=== PATIENT | female | born 1950 | race Caucasian/White ===

== ENCOUNTER → 2018-06-22 12:33 | Outpatient (CLI) | payer MEDICARE, OTHER, SELFPAY ==
--- NOTE | 2018-06-22 12:34 | DI.MG.S_ITS ---
BILATERAL DIGITAL SCREENING MAMMOGRAM 3D/2D WITH CAD: 06/22/2018 CLINICAL: Routine screening. Comparison is made to exams dated: 07/24/2015 mammogram, 07/23/2014 mammogram, and 08/16/2011 mammogram - [facility]. The tissue of both breasts is heterogeneously dense. This may lower the sensitivity of mammography. Current study was also evaluated with a Computer Aided Detection (CAD) system. No significant masses, calcifications, or other findings are seen in either breast. There has been no significant interval change. IMPRESSION: NEGATIVE There is no mammographic evidence of malignancy. A 1 year screening mammogram is recommended. This exam was interpreted at Station ID: [id number]. NOTE: For mammograms, a report in lay terms will be sent to the patient. Approximately 15% of breast malignancies will not be visualized mammographically. In the management of a palpable breast mass, a negative mammogram must not discourage biopsy of a clinically suspicious lesion. Electronically Signed By: Raman everett/alexy:06/22/2018 16:06:54 letter sent: Normal Exam ACR BI-RADS Category 1: Negative [id number]
== END ==
PROVIDERS: Family Provider Family Medicine; PCP Family Medicine; Visit Provider Family Medicine
DX: Z12.31 Encounter for screening mammogram for malignant neoplasm of breast (principal)
CPT/HCPCS: 77063; 77067

== ENCOUNTER 2019-09-13 11:28 | Day surgery (SDC) | payer MEDICARE, OTHER, SELFPAY ==
[2019-08-15 08:26] VITALS: BMI 25.0
[2019-09-13 12:22] VITALS: BP 135/94; PULSE 86; RESP 15; TEMP 37.1; O2SAT 96; BMI 25.0
[2019-09-13] MEDS: LACTATED RINGERS 1,000 ML 42 ML IV (12:28)
--- NOTE | 2019-09-13 13:07 | PM.HP.1 ---
History of Present Illness History of Present Illness Chief complaint: 20340 Patient History Medical History Anemia (Resolved 1972) Colitis (Resolved 1972) Colon polyps (Resolved 1972) Crohn's disease (Chronic) History of vaginal delivery (Resolved) Ileostomy present (Chronic 1985) Myocardial infarction (Resolved) Osteopenia (Chronic) Ulcerative colitis (Resolved 1972) Surgical History (Updated 08/15/19 @ 08:34 by Feli Funes RN) Anesthesia (Resolved) History of colectomy (Resolved 03/13/86) Hx of bilateral cataract extraction (Acute ~2017) Hx of foot surgery (Acute) Family & Social History Family History (Updated 06/06/18 @ 15:28 by Zahida Marsh MD) Sister Diabetes mellitus Grandmother Congestive heart failure Mother Cancer Social History: household members spouse lives independently Yes caregiver/support person No Tobacco & Substance use: Smoking Status Never smoker alcohol intake current Meds Home Medications and Allergies Home Medications Medication Instructions Recorded Confirmed Type acetaminophen 650 mg 1,300 mg PO Q8H PRN 06/06/18 09/13/19 History tablet,extended release diphenhydramine HCl 50 mg capsule 50 mg PO BEDTIME PRN 06/06/18 09/13/19 History nystatin 100,000 unit/gram topical 1 applictn TOP BID PRN #15 gram 04/05/19 09/13/19 Rx powder Allergies Allergy/AdvReac Type Severity Reaction Status Date / Time No Known Allergies Allergy Mild Uncoded 09/13/19 12:18 Exam Vital Signs (past 8 hours): - 09/13/19 12:22 Temperature 98.7 F Pulse Rate 86 Respiratory Rate 15 Blood Pressure 135/94 H Pulse Oximetry 96 Oxygen Delivery Method Room Air Assessment & Plan Assessment & Plan narrative: No internal changes to H&P
[2019-09-13] MEDS: CEFAZOLIN 2 GM/100 ML FROZ.PIGGY IV (13:15)
--- NOTE | 2019-09-13 13:46 | SUR.OPER ---
Supine on padded OR bed, head on pillow, arms secured on padded arm boards at <90 degrees abduction, legs uncrossed, safety belt at thigh, left leg under control of surgeon, tape over blanket over right lower leg.
[2019-09-13] MEDS: BUPIVACAINE 0.5% (PF) VIAL 10 ML INJ (13:53)
[2019-09-13] MEDS: LIDOCAINE 2% INJ MDV 20 ML INJ (13:54)
[2019-09-13] MEDS: LIDOCAINE 1% W/EPI 20 ML INJ (13:55)
[2019-09-13] MEDS: DEXAMETHASONE 10 MG/ML VIAL 5 MG INJ (14:47)
[2019-09-13 15:02] VITALS: BP 140/84; PULSE 90; RESP 16; TEMP 36.4; O2SAT 98
[2019-09-13 15:05] VITALS: BP 140/87; PULSE 87; RESP 15; O2SAT 98
--- NOTE | 2019-09-13 15:05 | P.OP_ITS ---
Operative Date/Time/Diagnoses Date of procedure: 09/13/19 Time of procedure: 15:05 Pre-op diagnosis: Painful bunion deformity, left foot Post-op diagnosis: same Procedure & Clinicians Procedure: Bunion correction by double osteotomy, left foot Same procedure as scheduled: Yes Indications: painful bunion deformity, left foot Surgeon: Ata Billy Click Yes if Unassisted: Yes Anesthesia Type: General and Local Operative Notes Closure Type: primary Specimen(s): none sent Prosthetic devices, grafts, tissues, transplants, or devices: 1x2.0mm cortical screw 1x2.7mm cortical screw 1x#10 [id number] JAWS bone staple Estimated Blood Loss (mL): 5 Blood products transfused: none Tourniquet time (min): 0 Procedure in detail: Operation: The patient was taken from the day surgery area back to the operating room via gurney, after having been given IV antibiotic prophylaxis. She was placed on the OR table in the supine position. General anesthesia was induced by Dr. Nguyen. Local anesthetic infiltration using 50 50 lidocaine 12 cc was administered as a field block. A high calf tourniquet was placed, however was not utilized throughout the case. The foot was then prepped and draped in usual sterile fashion from toe to knee. Procedure: Bunionectomy by double osteotomy, left foot Attention was directed toward the dorsal medial side of the left foot. Just midline from the EHL tendon, a longitudinal incision measuring approximately 10 cm was placed over the distal 1st metatarsal extending just short of the hallux IP joint. Sharp and blunt dissection were utilized throughout the subcutaneous tissue layer, taking care to retract all vital structures and cauterized as necessary for adequate hemostasis. A dorsal longitudinal capsulotomy was performed delivering the 1st metatarsal head. Utilizing a K-wire as an axis guide, a long dorsal arm metaphyseal osteotomy was performed through the metatarsal neck. The capital fragment was then translated laterally about 5 mm and temporarily pinned in place. It was then permanently fixated with a 2.7 mm cortical screw distally and a 2.0 cortical screw more proximal. Good compression was found on tightening down of the screws. Additional correction was still deemed necessary and so a phalanx osteotomy was performed of the proximal phalanx. This was a transverse wedge osteotomy maintaining the lateral cortical hinge and avoiding a injury to any of the plantar structures. The osteotomy was closed down and fixated with a paragon 28 size 10. Compression staple. Excellent compression and alignment was achieved. The wound was then copiously irrigated with antibiotic solution, as had been done multiple times throughout the case. Layered closure was then performed of the capsule, subcu, and skin respectively with 3 0, 4, 5 O Vicryl. Steri-Strips were placed, a postop block of 0.5% Marcaine plain administered. A light gauze compression bandage was applied. Intraop C-arm was then utilized to confirm adequate in corrective fixation. The patient tolerated the procedures and anesthesia well without any apparent complications. She left the OR with vital signs stable and digital perfusion intact. She will be touchdown weight-bearing allowed in a walking boot and will be seen for follow-up in the [place] office next week. Complications: none Post-operative Condition: stable Disposition: same day surgery Plan for aftercare: Already has her boot. Already has po appointment made. Already given Rx for po pain meds.
[2019-09-13 15:10] VITALS: BP 141/87; PULSE 87; RESP 15; O2SAT 95
[2019-09-13 15:20] VITALS: BP 140/80; PULSE 83; RESP 13; TEMP 36.4; O2SAT 98
== END 2019-09-13 15:24 | disposition home or self-care (01) ==
PROVIDERS: PCP Family Medicine; Visit Provider Podiatrist
PROC: 0QBP0ZZ Excision of Left Metatarsal, Open Approach (ICD-10-PCS; CPT 28292; principal; 2019-09-13 13:00)
DX: M20.12 Hallux valgus (acquired), left foot (principal); M79.672 Pain in left foot; I25.2 Old myocardial infarction
CPT/HCPCS: 28299; J0690; J1100; J2704; J3010

== ENCOUNTER → 2023-07-06 09:57 | Outpatient (CLI) | payer MEDICARE, OTHER, SELFPAY ==
[2023-07-06 10:51] LABS: BUN Creatinine Ratio 16.9 (6-22); Blood Urea Nitrogen 11 mg/dL (7-17); Calcium 9.2 mg/dL (8.4-10.2); Carbon Dioxide 26 mmol/L (22-32); Chloride 103 mmol/L (98-107); Estimated Glomerular Filt Rate > 60 mL/min (>60); Glucose 109 mg/dL (80-110); HEMOLYSIS < 15 (0-50); Potassium 3.9 mmol/L (3.4-5.1); Sodium 136 mmol/L (137-145)
== END ==
PROVIDERS: PCP Family Medicine; Visit Provider Nurse Practitioner Family
DX: U07.1 COVID-19 (principal)
CPT/HCPCS: 80048

== ENCOUNTER → 2023-11-29 06:44 | Outpatient (CLI) | payer MEDICARE, OTHER, SELFPAY ==
[2023-11-29 08:40] LABS: Cholesterol 224 mg/dL (140-199); Glucose 92 mg/dL (80-110); HDL Cholesterol 91 mg/dL (40-60); LDL Cholesterol Calculated 112 mg/dL (<100); Triglycerides 106 mg/dL (35-150)
== END ==
LOC: LAB 06:46
PROVIDERS: PCP Family Medicine; Referring Provider Family Medicine; Visit Provider Family Medicine
DX: R73.9 Hyperglycemia, unspecified (principal); E78.5 Hyperlipidemia, unspecified
CPT/HCPCS: 36415; 80061; 82947

== ENCOUNTER → 2023-12-01 16:55 | Outpatient (CLI) | payer MEDICARE, OTHER, SELFPAY ==
--- NOTE | 2023-12-01 16:57 | DI.MG.S_ITS ---
BILATERAL DIGITAL SCREENING MAMMOGRAM 3D/2D WITH CAD: 12/01/2023 CLINICAL: Routine screening. Comparison is made to exams dated: 06/22/2018 mammogram, 07/24/2015 mammogram, and 07/23/2014 mammogram - [facility]. Both breasts are heterogeneously dense, which may obscure small masses (category c / 51-75% glandular tissue). Current study was also evaluated with a Computer Aided Detection (CAD) system. There is a focal asymmetry in the right breast at 12 o'clock middle depth. There is architectural distortion associated with the focal asymmetry. No other significant masses, calcifications, or other findings are seen in either breast. IMPRESSION: INCOMPLETE: NEEDS ADDITIONAL IMAGING EVALUATION The focal asymmetry in the right breast is indeterminate. Additional views with possible ultrasound are recommended. Based on the Tyrer Cuzick model (a risk assessment model) the patient's lifetime risk is 4.8% and her 10 year risk is 4.3%. According to the ACR, ACS, and NCCN guidelines, an annual breast MRI exam along with mammogram is recommended if the patient's lifetime risk is 20% or greater. This exam was interpreted at Station ID: [id number]. NOTE: For mammograms, a report in lay terms will be sent to the patient. Approximately 15% of breast malignancies will not be visualized mammographically. In the management of a palpable breast mass, a negative mammogram must not discourage biopsy of a clinically suspicious lesion. Electronically Signed By: Teresa Cevallos M.D. lk/:12/04/2023 10:37:46 letter sent: Additional Imaging Needed ACR BI-RADS Category 0: Incomplete 3340F
== END ==
PROVIDERS: PCP Family Medicine; Referring Provider Family Medicine; Visit Provider Family Medicine
DX: Z12.31 Encounter for screening mammogram for malignant neoplasm of breast (principal); R92.333 Mammographic heterogeneous density, bilateral breasts
CPT/HCPCS: 77063; 77067

== ENCOUNTER → 2024-01-05 09:18 | Outpatient (CLI) | payer MEDICARE, OTHER, SELFPAY ==
--- NOTE | 2024-01-05 | DI.MG.S_ITS ---
UNILATERAL RIGHT DIGITAL DIAGNOSTIC MAMMOGRAM 3D/2D WITH ADDITIONAL VIEWS: 01/05/2024 CLINICAL: Additional evaluation requested from prior study. Comparison is made to exams dated: 12/01/2023 mammogram, 06/22/2018 mammogram, and 07/24/2015 mammogram - [facility]. The right breast is heterogeneously dense, which may obscure small masses (category c / 51-75% glandular tissue). There is a focal asymmetry in the right breast at 12 o'clock middle depth. This is seen in additional views. There is architectural distortion associated with the focal asymmetry. No other significant masses or calcifications are seen in the breast. IMPRESSION: INCOMPLETE: NEEDS ADDITIONAL IMAGING EVALUATION The focal asymmetry in the right breast is indeterminate. A targeted ultrasound of the right breast is recommended and will be performed immediately following this exam. Based on the Tyrer Cuzick model (a risk assessment model) the patient's lifetime risk is 4.8% and her 10 year risk is 4.3%. According to the ACR, ACS, and NCCN guidelines, an annual breast MRI exam along with mammogram is recommended if the patient's lifetime risk is 20% or greater. This exam was interpreted at Station ID: [id number]. NOTE: For mammograms, a report in lay terms will be sent to the patient. Approximately 15% of breast malignancies will not be visualized mammographically. In the management of a palpable breast mass, a negative mammogram must not discourage biopsy of a clinically suspicious lesion. Electronically Signed By: Teresa Cevallos M.D. lk/:01/05/2024 10:05:44 ACR BI-RADS Category 0: Incomplete 3340F
--- NOTE | 2024-01-05 09:20 | DI.US.S_ITS ---
LIMITED ULTRASOUND OF RIGHT BREAST AND AXILLA: 01/05/2024 CLINICAL: Patient returns today to evaluate a focal asymmetry in the right breast. Comparison is made to exams dated: 01/05/2024 mammogram, 12/01/2023 mammogram, 06/22/2018 mammogram, 07/24/2015 mammogram, 07/23/2014 mammogram, and 08/16/2011 mammogram - [facility]. Color flow and real-time ultrasound of the right breast 10-11 o'clock, and axilla regions were performed on the areas of interest. Parra scale images of the real-time examination were reviewed. There is an irregular mass in the right breast at 10 o'clock middle depth. This irregular mass is hypoechoic with posterior acoustic shadowing. This correlates with mammography findings. There also is an enlarged lymph node in the right axillary tail. IMPRESSION: HIGHLY SUGGESTIVE OF MALIGNANCY The irregular mass in the right breast at 10 o'clock middle depth is highly suggestive of malignancy. An ultrasound guided biopsy is recommended. The enlarged lymph node in the right axillary tail is at a moderate suspicion for malignancy. An ultrasound guided biopsy is recommended. This exam was interpreted at Station ID: [id number]. SUMMARY: This was discussed with the patient by the radiologist at the time of the exam. Electronically Signed By: Teresa ugalde/:01/05/2024 10:54:01 letter sent: Biopsy Required Ultrasound BI-RADS: 5 Highly suggestive of malignancy
== END ==
LOC: MAMMO 09:19
PROVIDERS: PCP Family Medicine; Referring Provider Family Medicine; Visit Provider Family Medicine
DX: R92.8 Other abnormal and inconclusive findings on diagnostic imaging of breast (principal); N63.11 Unspecified lump in the right breast, upper outer quadrant; R59.0 Localized enlarged lymph nodes; R92.331 Mammographic heterogeneous density, right breast
CPT/HCPCS: 76642; 77065; G0279

== ENCOUNTER → 2024-01-22 08:01 | Outpatient (CLI) | payer MEDICARE, OTHER, SELFPAY ==
--- NOTE | 2024-01-22 | PATH_ITS ---
[facility] Accession Number: [id number] No. of containers..01 Tissue . 01 Material submitted: . breast - RIGHT BREAST 10:00 6 CMFN MASS . 01 Diagnosis: RIGHT BREAST 10 O'CLOCK, 6 CM FROM NIPPLE MASS, IMAGE-GUIDED BIOPSY: Invasive carcinoma of the breast. Please see case summary below. . CASE SUMMARY: . Specimen: Needle biopsy. Laterality: Right. . Tumor Tumor site: Upper outer quadrant. Specimen clock: 10 o'clock. Histologic type: Invasive carcinoma of no special type (ductal). . Histologic grade Glandular/tubular differentiation: Score 3/3. Nuclear pleomorphism: Score 3/3. Mitotic rate: Score 2/3. Overall grade: Grade 3. . Ductal carcinoma in situ: Not identified. Lymphatic invasion: Suspicious foci present. Microcalcifications: Not identified. . Special studies: . Predictive marker immunohistochemical studies are performed on block A1 with the invasive carcinoma showing the following results: . Estrogen receptor (SP1): Positive (91-100%, strong staining). . Progesterone receptor (1E2): Negative (less than 1%). Internal control cells present and stain as expected. Please see comment. . Her2 (4B5): Equivocal (Score 2+). Her2 FISH studies requested; results will be reported as an addendum. . . Internal controls for ER and OR are positive. Cold ischemic time is not known. The scoring criteria for breast biomarkers by immunohistochemistry is based on the ASCO/CAP guidelines (Panchito AC et al, J Clin Oncol: 2018 May 10;36(20):2065-5135 and Padmini ME et al, Arch Pathol Lab Med: 2009;134(6):907-22). Deparaffinized sections of formalin fixed tissue (along with appropriate positive controls) are incubated with the above antibody(s). Using the automated [place] stainer, tissue is incubated with the designated antibody which is then localized by a non-biotin, dual polymer detection system. The external controls are reviewed for appropriate reactivity and found to be adequate. Results on the target cell population are indicated above. These tests have not been validated on decalcified tissue. This test was developed and its performance characteristics determined by [employer]. It has not been cleared or approved by the U.S. Food and Drug Administration. The FDA has determined that such clearance or approval is not necessary. This test is used for clinical purposes. It should not be regarded as investigational or for research. MRV 01/25/2024 1341 Local . 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 . As part of ongoing quality technician, this case is also reviewed by Dr. Tania Shipley, who concurs with the given interpretation. . Dr. Jasmyn Espinoza discussed results with Dr. Maximo Patel's nurse, on 01-25-24 at approximately 1:16 p.m. . 01 Electronically signed: . Jasmyn Espinoza MD, Pathologist NPI- [id number] . 01 Gross description: . Received is one formalin-filled container labeled with the patient's name, designated right breast 10 o'clock 6 cm FN mass. Received with a plastic filter in the container, sample loose in container, and consists of multiple yellow-cook to cook-kumar pieces of tissue which range in size from 0.4 x 0.2 x 0.2 cm to 1.0 x 0.3 x 0.3 cm. All fragments are totally submitted in cassette A1. Possible collection date and time per requisition 01/22/2024 at 0918 hours, total fixation time approximately 18 hours. ([id number]) /MARIANA 01/23/2024 0650 Local . 01 Microscopic: . An immunohistochemistry panel is performed to further evaluate the cells of interest. The control stains show appropriate reactivity. . RESULTS: E-cadherin: Strongly positive. GATA3: Strongly positive. Myosin: Absent in regions of interest. P63: Absent in regions of interest. . The neoplastic cells are strongly positive for e-cadherin and NORBERTO-3, consistent with a ductal carcinoma of breast origin. The absence of myosin and p63 expression supports an invasive process. . * This test was developed and its performance characteristics determined by [employer]. It has not been cleared or approved by the U.S. Food and Drug Administration. The FDA has determined that such clearance or approval is not necessary. This test is used for clinical purposes. It should not be regarded as investigational or for research. . 01 Pathologist provided ICD-10: C77.3, N63.10, C50.911 . 01 CPT . 213035, T75975, E99174, 281812, 279131, 240804 Specimen Comment: A courtesy copy of this report has been sent to [phone] Performed at: 01 [facility] [address] [place] [address], [place], [place] [id number] MD Raman Daniel MD Phone: [phone]
--- NOTE | 2024-01-22 | DI.MG.S_ITS ---
UNILATERAL RIGHT DIGITAL DIAGNOSTIC MAMMOGRAM 3D/2D POST-PROCEDURE IMAGING FOR MARKER PLACEMENT: 01/22/2024 CLINICAL: Post clip. Comparison is made to exams dated: 01/05/2024 ultrasound, 01/05/2024 mammogram, 12/01/2023 mammogram, 01/22/2024 ultrasound biopsy, 01/22/2024 ultrasound biopsy, and 06/22/2018 mammogram - [facility]. The right breast is heterogeneously dense, which may obscure small masses (category c / 51-75% glandular tissue). There is a marker clip in the appropriate position in the right breast at 10 o'clock middle depth. This marker clip placement is at the biopsy site. Axillary biopsy clip is not included in the field of view of this exam. IMPRESSION: POST PROCEDURE MAMMOGRAM FOR MARKER PLACEMENT There was a successful marker clip placement in the right breast middle depth. Axillary biopsy clip is not included in the field of view of this exam. Based on the Tyrer Cuzick model (a risk assessment model) the patient's lifetime risk is 4.8% and her 10 year risk is 4.3%. According to the ACR, ACS, and NCCN guidelines, an annual breast MRI exam along with mammogram is recommended if the patient's lifetime risk is 20% or greater. This exam was interpreted at Station ID: [id number]. NOTE: For mammograms, a report in lay terms will be sent to the patient. Approximately 15% of breast malignancies will not be visualized mammographically. In the management of a palpable breast mass, a negative mammogram must not discourage biopsy of a clinically suspicious lesion. Electronically Signed By: Luis Arita M.D. ar/:01/22/2024 12:08:48 ACR BI-RADS Category Post-procedure mammogram for marker placement
--- NOTE | 2024-01-22 | PATH_ITS ---
[facility] Accession Number: [id number] No. of containers..01 Tissue . 01 Material submitted: . lymph node - RIGHT AXILLARY LYMPH NODE . 01 Diagnosis: RIGHT AXILLARY LYMPH NODE, NEEDLE CORE BIOPSY: Metastatic poorly differentiated carcinoma, consistent with breast ductal origin. MRV 01/25/2024 1359 Local . 01 Comment: Please note that while this axillary lymph node biopsy is AK positive, the biopsy from the right breast mass (case [id number]) is AK negative. . As part of routine food quality technician, this case was also reviewed by Dr. Shipley, who agrees with the interpretation. . Dr. Jasmyn Espinoza discussed results with Dr. Maximo Patel's nurse, on 01-25-24 at approximately 1:16 p.m. . 01 Electronically signed: . Jasmyn Espinoza MD, Pathologist NPI- [id number] . 01 Gross description: . Received is one formalin-filled container labeled with the patient's name designated right axillary lymph node, are three light cook cylindrical shaped pieces of tissue which range in size from 0.3 x 0.1 x 0.1 cm to 0.6 x 0.1 x 0.1 cm. All fragments are totally submitted in cassette A1. (DC:[id number]) /MARIANA 01/23/2024 0652 Local . 01 Microscopic: . An immunohistochemistry panel is performed to further evaluate the cells of interest. The control stains show appropriate reactivity. . RESULTS: GRECIA: Positive. E-cadherin: Strongly positive. GATA3: Strongly positive. Myosin: Absent in regions of interest. P63: Absent in regions of interest. . The neoplastic cells are strongly positive for GRECIA, e-cadherin and GATA3, consistent with ductal carcinoma of breast origin. Absent expression of myosin and p63 are consistent with an invasive process. . . Predictive marker immunohistochemical studies are performed on block A1 with the metastatic ductal carcinoma showing the following results: . Estrogen receptor (SP1): Positive (91-100%, strong staining). . Progesterone receptor (1E2): Positive (40-50%, weak staining). Please see comment. . Her2 (4B5): Equivocal (Score 2+). Her2 FISH is requested, results will be reported as an addendum. . Cold ischemic time is not known. The scoring criteria for breast biomarkers by immunohistochemistry is based on the ASCO/CAP guidelines (Panchito AC et al, J Clin Oncol: 2017May 15;36(20):0103-3987 and Padmini ME et al, Arch Pathol Lab Med: 2009;134(6):907-22). Deparaffinized sections of formalin fixed tissue (along with appropriate positive controls) are incubated with the above antibody(s). Using the automated [employer] stainer, tissue is incubated with the designated antibody which is then localized by a non-biotin, dual polymer detection system. The external controls are reviewed for appropriate reactivity and found to be adequate. Results on the target cell population are indicated above. These tests have not been validated on decalcified tissue. This test was developed and its performance characteristics determined by [employer]. It has not been cleared or approved by the U.S. Food and Drug Administration. The FDA has determined that such clearance or approval is not necessary. This test is used for clinical purposes. It should not be regarded as investigational or for research. . 01 Pathologist provided ICD-10: C77.3 . 01 CPT . 420034, B63690, A02785, 012739, 011622, 482962 Specimen Comment: A courtesy copy of this report has been sent to [phone] Performed at: 01 [facility] [address] [place] [address] [address] [facility], [place], [place] [id number] MD Raman Daniel MD Phone: [phone]
--- NOTE | 2024-01-22 08:04 | DI.US.S_ITS ---
ULTRASOUND GUIDED BIOPSY RIGHT BREAST USING VACUUM DEVICE WITH MARKING DEVICE INSERTED AND POST DIGITAL MAMMOGRAPHIC IMAGIN01/22/2024 CLINICAL: Right breast mass. PATIENT CONSENT: Risks (minor bleeding, infection, vasovagal reaction and repeat procedure), benefits and alternatives were explained to the patient and written informed consent was obtained. Correlation is made to exams dated: 01/05/2024 ultrasound, 01/05/2024 mammogram, 12/01/2023 mammogram, and 06/22/2018 mammogram - [facility]. An ultrasound guided biopsy using real-time ultrasound was performed for the irregular shaped mass located in the right breast at 10 o'clock middle depth. This was described on the previous mammography and ultrasound reports. The skin was prepped in the usual manner. Local anesthetic was administered to the access site. A skin eladio was made in the breast. The abnormality was approached from the lateral aspect. A 14 gauge biopsy needle was placed adjacent to the abnormality under ultrasound guidance. Once the needle was documented to be in the correct location, four specimens were obtained using a vacuum assisted device. A clip was inserted into the biopsy cavity. A sterile dressing was applied to the access site. Post procedure digital mammographic imaging demonstrates the location device at the targeted area. The specimens were sent to the laboratory for pathological analysis. IMPRESSION: ULTRASOUND GUIDED BIOPSY MALIGNANT Ultrasound guided biopsy of the mass in the right breast at 10 o'clock middle depth was successful with no apparent post procedure complications. Pathology indicates malignant invasive ductal carcinoma (IDC). Pathology results are concordant with imaging findings. A surgical/oncologic consultation is recommended. This exam was interpreted at Station ID: [id number]. Luis Arita M.D. Vanessa Gutierrez M.D., Ph.D. lew irizarry/:01/30/2024 13:08:38
--- NOTE | 2024-01-22 08:04 | DI.US.S_ITS ---
ULTRASOUND GUIDED BIOPSY RIGHT BREAST WITH MARKING DEVICE INSERTED AND POST DIGITAL MAMMOGRAPHIC IMAGIN01/22/2024 CLINICAL: Right axillary node biopsy. PATIENT CONSENT: Risks (minor bleeding, infection, vasovagal reaction and repeat procedure), benefits and alternatives were explained to the patient and written informed consent was obtained. Correlation is made to exams dated: 01/05/2024 ultrasound, 01/05/2024 mammogram, 12/01/2023 mammogram, and 06/22/2018 mammogram - [facility]. An ultrasound guided biopsy using real-time ultrasound was performed for the lymph node located in the right axilla. This was described on the previous ultrasound report. The skin was prepped in the usual manner. Local anesthetic was administered to the access site. A skin eladio was made in the breast. The abnormality was approached from the lateral aspect. A 20 gauge biopsy needle was placed adjacent to the abnormality under ultrasound guidance. Once the needle was documented to be in the correct location, three specimens were obtained using Temno biopsy device. A clip was inserted into the biopsy cavity. A sterile dressing was applied to the access site. Post procedure digital mammographic imaging was obtained. The specimens were sent to the laboratory for pathological analysis. IMPRESSION: ULTRASOUND GUIDED BIOPSY MALIGNANT Ultrasound guided biopsy of the lymph node in the right axilla was successful with no apparent post procedure complications. Pathology indicates malignant metastasis to axillary lymph node (MDN). Pathology results are concordant with imaging findings. A surgical/oncologic consultation is recommended. This exam was interpreted at Station ID: [id number]. Luis Arita M.D. Vanessa Gutierrez M.D., Ph.D. lew irizarry/:01/30/2024 13:10:27
--- NOTE | 2024-01-29 15:13 | PC.NURSE ---
t/c with patient informing her that nurse navigator from [facility] will be reaching out to her. Letter sent.
--- NOTE | 2024-01-30 09:53 | PC.NURSE ---
NEW REFERRAL TO [facility] FOR BREAST CANCER: CALL MADE TO PATIENT TO INFORM HER OF THE PROCESS AND THAT SHE SHOULD BE HEARING FROM BOTH [facility] AND MERGED WITH [facility]. ADVICE GIVEN ON KEEPING UP GOOD NUTRITION WITH MANY VEGGIES AND FRUIT, KEEP UP HYDRATION AND EXERCISE NOW AND THROUGH [facility]. SHE WAS INFORMED THAT SHE CAN CONTINUE TO GET ANCILLARY SERVICES HERE AT AND SUPPORTIVE THERAPIES AT [facility] AND [facility]. SHE WAS ENCOURAGED TO CALL AND SPEAK WITH OUR TRIAGE NURSE IF ANY CONCERNS/QUESTIONS. PATIENT EXPRESSED APPRECIATION. A FOLLOW UP LETTER WAS SENT.
== END ==
LOC: US 08:03
PROVIDERS: PCP Family Medicine; Referring Provider Family Medicine; Visit Provider Family Medicine
DX: C77.3 Secondary and unspecified malignant neoplasm of axilla and upper limb lymph nodes; C50.411 Malignant neoplasm of upper-outer quadrant of right female breast
CPT/HCPCS: 19083; 38505; 76942; 77065

== ENCOUNTER 2024-02-14 07:41 | Day surgery (SDC) | payer MEDICARE, OTHER, SELFPAY ==
[2024-02-05 11:46] VITALS: BMI 21.7
[2024-02-14] VITALS (13 sets, daily range): BP systolic 130–182; BP diastolic 74–111; PULSE 63–700; RESP 16–21; TEMP 36.1–37.1; O2SAT 96–100; BMI 22.4
--- NOTE | 2024-02-14 | PATH_ITS ---
[facility] Accession Number: [id number] No. of containers..02 Tissue . 01 Material submitted: . PART A: breast - RIGHT BREAST PART B: axillary tail of breast - RIGHT AXILLARY CONTENTS . 01 Diagnosis: A. RIGHT BREAST, SIMPLE MASTECTOMY: Invasive ductal carcinoma, poorly differentiated. . CASE SUMMARY Procedure: Total mastectomy. Specimen laterality: Right. Tumor site: Upper outer quadrant. Tumor: - Histologic type: Invasive carcinoma of no special type (ductal). - Histologic grade (Tiff score): 9 out of 9 possible (histologic=3, mitotic rate=3, nuclear=3); Grade 3. - Tumor size: 2.3 cm in maximum dimension. - Tumor focality: Single focus. - Ductal carcinoma in situ: Not identified. - Tumor extent: Not applicable (skin and nipple uninvolved). - Lymphovascular invasion: Not identified. - Treatment effect: No known presurgical therapy. Margin status of invasive carcinoma: All margins negative (distance from invasive carcinoma to closest margin 1.0 cm, posterior). Regional lymph node status: See below (part B); 2 of 17 lymph nodes positive for metastatic carcinoma (both macrometastases, largest deposit = 2.2 cm). pTNM classification (AJCC 8th Edition): pT2, pN1a. Breast biomarker testing: Performed on previous biopsy (see report [id number]); ER positive, TN negative, HER2 equivocal (not amplified by FISH). Additional findings: Focal usual ductal hyperplasia and columnar cell change/hyperplasia. . B. LYMPH NODES, RIGHT AXILLARY, DISSECTION: Positive for metastatic carcinoma involving 2 of 17 lymph nodes (largest deposit 2.2 cm). - Negative for extranodal extension. [facility] 02/20/2024 1731 Local . 01 Electronically signed: . Nadia Duran MD, Pathologist NPI- [id number] . 01 Gross description: . A. Received: In formalin with two identifiers and right breast. Specimen: A right simple mastectomy. Weight: 888 grams. Measurement: 19.9 cm from superior to inferior, 21.2 cm from medial to lateral, 5.0 cm from anterior to posterior. Skin ellipse: Present, with kumar, wrinkled, unremarkable skin measuring 19.4 x 14.2 cm. Nipple/areola: A 1.1 x 0.9 cm diameter everted nipple within in a pale areola measuring 2.1 x 2.1 cm. Axillary tail: Not present within the specimen. Margins: The skin ellipse is oriented by the surgeon with a short suture designating superior and a long suture designating lateral per the requisition. The anterior-superior margin is inked blue, the anterior-inferior margin is inked green, and the posterior margin is inked black. The margins are grossly unremarkable. Sliced: From lateral to medial into 19 slices. Lesion: An ill-defined, kumar, firm lesion in the upper outer quadrant at approximately 10 o'clock. A Vision-shaped biopsy clip is found within slice 8. Size: 2.3 x 1.7 x 1.1 cm. Slices involved: Slices 7 and 8. Distance from margins: The specimen measures 2.1 cm from the nearest blue-inked anterior superior margin, and is widely free from all remaining margins. Other: Remaining cut surfaces are yellow to white fibroadipose tissue with fibrous tissue occupying approximately 30% of the cut surface with no additional lesions identified. Fixation: The specimen was removed on 02/14/2024, time not provided. Cold ischemic time cannot be calculated. Total fixation time is approximately 65 hours following additional fixation. Director Oncology sections are submitted as follows: A1: Entire bisected nipple. A2-A3: Rep slice 6, no lesion, posterior to anterior. A4-A6: Slice 7 with lesion from posterior to anterior. A7: Slice 8, black-inked posterior margin nearest lesion. A8: Slice 8, blue inked, nearest anterior, superior and skin margin. A9-A10: Entire lesion, slice 8 from posterior to anterior with biopsy site in slice 9. A11-A12: Slice 9, no lesion from posterior to anterior. A13: Rep sections from remaining quadrants. . B. Received in formalin with two identifiers and R axillary contents, is an unoriented fragment of yellow lobulated fibroadipose tissue measuring 7.9 x 6.3 x 2.4 cm. Palpation reveals 17 kumar, lymph node candidates ranging from 0.2 to 3.7 cm in greatest dimension. The largest lymph node candidate is sectioned to reveal a cylindrical biopsy clip and a pale kumar cut surface. Director Oncology sections to include all lymph node candidates are submitted as follows: B1-B2: Director Oncology largest lymph node to include biopsy site. B3-B4: Single bisected lymph node candidate. B5: Single bisected lymph node candidate. B6: Two intact lymph node candidates. B7: Three intact lymph node candidates. B8: Four intact lymph node candidates. B9: Five intact lymph node candidates. . Fixation: The specimen was removed on 02/14/2024, time not provided. Cold ischemic time cannot be calculated. Total fixation time is approximately 65 hours following additional fixation. ([id number]) /MRV 02/15/2024 [facility] Local . 01 Pathologist provided ICD-10: C50.911 . 01 CPT . 123744, [id number] Specimen Comment: A courtesy copy of this report has been sent to [phone] Performed at: 01 [facility] [address] [place] [address], [place], [place] [id number] MD Raman Daniel MD Phone: [phone]
--- NOTE | 2024-02-14 08:41 | PM.PREOP ---
Pre-operative Note Interval Note History & Physical reviewed/Exam performed by Physician: Yes Changes to H&P: No
[2024-02-14] MEDS: LACTATED RINGERS 1,000 ML 21 ML IV (08:50)
[2024-02-14] MEDS: SCOPOLAMINE 1 PATCH TOP (08:57)
[2024-02-14] MEDS: ACETAMINOPHEN 325 MG TABLET 975 MG PO (08:57)
--- NOTE | 2024-02-14 08:58 | SUR.OPER ---
Supine on padded OR bed, head on pillow, arms secured on padded arm boards at <90 degrees abduction, legs uncrossed, safety belt at thigh,
--- NOTE | 2024-02-14 09:29 | SUR.PREOP ---
Time out 920 Block start time 921. Monitoring initiated and maintained throughout procedure. Oxygen and medications given by anesthesiologist instructions. Pt remained stable throughout. Block completed at 932
[2024-02-14] MEDS: CEFAZOLIN 2 GM/100 ML PREMIX 100 ML IV (09:48)
[2024-02-14] MEDS: BUPIVACAINE 0.25% (PF) VIAL 30 ML INJ ×2 (10:01→11:22)
--- NOTE | 2024-02-14 12:34 | SUR.PHASEI ---
Upon transfer to phase 2 doctor and patient along with decide it is beneficial for the patient to stay the night. Report called to JEANNE Delarosa. No further vitals done as patient is stable and ready for floor status.
[2024-02-14] MEDS: ACETAMINOPHEN 325 MG TABLET 650 MG PO ×2 (13:10→23:47)
[2024-02-14] MEDS: OXYCODONE IR 5 MG TABLET PO ×2 (13:12→21:23)
--- NOTE | 2024-02-14 13:46 | PC.NURSE ---
Pt arrived from PACU at 1315, A&Ox4, VSS on RA. C/o 4/10 pain to R chest as well as slight numbness and cold feeling to R hand. Dressing to R chest c/d/i, breast binder in place. Lung sounds CTA, bowel sounds hypoactive
--- NOTE | 2024-02-14 13:54 | PC.NURSE ---
Pt arrived from PACU at 1315, A&Ox4, VSS on RA. C/o 4/10 pain to R chest as well as slight numbness and cold feeling to R hand, CMS otherwise intact. Dressing to R chest c/d/i, breast binder in place. Lung sounds CTA, bowel sounds hypoactive, ileostomy to R abdomen. Pt medicated per JAN. Patient and oriented to room and call light. Bed in low position, call light within reach, SCDs on, bed alarm activated.
--- NOTE | 2024-02-14 14:26 | PM.OP.1 ---
Operative Date/Time/Diagnoses Date of procedure: 02/14/24 Time of procedure: 14:26 Pre-op diagnosis: Breast cancer Post-op diagnosis: same Procedure & Clinicians Procedure: Right mastectomy and axillary node dissection Same procedure as scheduled: Yes Indications: Ms. Patricio is 73-year-old woman who was diagnosed with right breast cancer. An architectural distortion was noted which was biopsy proven hormone receptor positive HER2 negative. In addition right axillary node was noted and biopsy demonstrates invasive ductal carcinoma within it. Following discussion she elects to proceed with mastectomy and axillary node dissection. Surgeon: Dev Alvarez Bonding Equipment Operator: Suleman Olmedo Anesthesia Type: General Operative Notes Findings: Multiple pathologically enlarged lymph nodes within axillary level 1 and 2 Specimen(s): other (Right breast, axillary content) Estimated Blood Loss (mL): 50 Procedure in detail: Patient was brought to the operating room placed supine on the table. Bilateral lower extremity compression devices were applied. She received 2 g of Ancef prior to skin incision. She was intubated with an endotracheal tube. She was then prepped and draped in sterile fashion. Time-out was performed. An elliptical incision around the nipple areola complex was made with the knife. The subcutaneous tissue was divided with electrocautery. Skin flaps were raised to separate the breast tissue from the skin along the subdermal plexus. The dissection was extended superior to the clavicle, medial to the sternum, inferior the the inframamary fold and lateral to the anterior border of the latisimus dorsi. The breast tissue was from the underlying pectoralis fascia. The breast was passed off the field marked short stitch superior long stitch lateral. The axillary tissue was bluntly dissected. The axillary vein, the latissimus dorsi and the pectoralis major and minor were all identified. Within level 1 there was a solitary lymph node of 3 cm in addition to multiple pathologically enlarged lymph nodes. There was minimal lymphatic tissue within level 2. The thoracodorsal nerve was clearly visible and was kept posterior out of harms way. The axillary nodes were carefully removed, the lymphatic and vascular structures secured with metalic clips. At the end of the dissection there was no residual lymphatic tissue present. A 19 [place] Vickey drain was placed into the axilla, a second drain placed into the mastectomy cavity. The wound was copiously irrigated and homeostasis was ensured. The mastectomy was closed with Vicryl for the subcutaneous tissue and the skin was closed with 4 0 Monocryl followed by the application of Dermabond. Patient tolerated procedure well she emerged from anesthesia was extubated and transferred to recovery room in stable condition. Complications: none Post-operative Condition: stable Disposition: observation
[2024-02-14] MEDS: IBUPROFEN 600 MG TABLET PO (23:47)
[2024-02-15] VITALS: O2SAT 95
[2024-02-15 04:00] VITALS: O2SAT 95
[2024-02-15 05:00] VITALS: BP 107/63; PULSE 76; RESP 21; TEMP 36.5; O2SAT 98
[2024-02-15 08:00] VITALS: O2SAT 99
[2024-02-15 08:29] VITALS: BP 115/72; PULSE 73; RESP 18; O2SAT 99
--- NOTE | 2024-02-15 13:05 | CM.DANOTE ---
Discharge Planning/Care Management CM Discharge Assessment Start: 02/15/24 12:39 Freq: Status: Active Protocol: Document 02/15/24 12:41 SHANA (Rec: 02/15/24 13:05 SHANA [id number]) Discharge Planning Assessment Assigned Wharf Tally Clerk EVENS Roach DPOA/Assigned Designee Name Benjamin Patricio, spouse Contact Information [phone] Advance Directives? No History Provided By Patient,Medical Record Prior Living Arrangements House Household Members spouse Type of transporation used prior to Drives own vehicle admit Independent with ADL's Yes Is patient alert and oriented? Yes Patient/Family Preference OP PT Therapy Barriers to Discharge No Comment Patient is POD1 from rt mastectomy and axillary node dissection. Patient has been discharged home w/spouse and recommendation for close outpatient follow up. Discharge Plan Home Transportation Arrangement Family Referrals Initiated None needed
== END 2024-02-15 10:50 | disposition home or self-care (01) ==
LOC: OR 07:44 → AC 07:45
PROVIDERS: PCP Family Medicine; Referring Provider Surgery; Visit Provider Surgery
PROC: 0HTT0ZZ Resection of Right Breast, Open Approach (ICD-10-PCS; CPT 19303; principal; 2024-02-14 09:15)
DX: C50.911 Malignant neoplasm of unspecified site of right female breast (principal); Z17.0 Estrogen receptor positive status [ER+]; G89.18 Other acute postprocedural pain; C77.3 Secondary and unspecified malignant neoplasm of axilla and upper limb lymph nodes
CPT/HCPCS: 19307; 64450; J0690; J1100; J2250; J2405; J2704; J3010

== ENCOUNTER → 2024-06-21 14:25 | Outpatient (CLI) | payer MEDICARE, OTHER, SELFPAY ==
[2024-02-14 12:56] VITALS: BMI 22.4
--- NOTE | 2024-06-21 14:27 | DI.RAD.S_ITS ---
PROCEDURE: XR CHEST 2V INDICATIONS: cough TECHNIQUE: 2 views of the chest were acquired. COMPARISON: None. FINDINGS: Surgical changes and devices: Right axilla surgical clips Lungs and pleura: Left basilar atelectasis and or infiltrate. Background chronic interstitial changes. Mediastinum: Mediastinal contours are normal. Heart size is normal. Bones and chest wall: No suspicious bony abnormalities. Soft tissues appear unremarkable. IMPRESSION: Left basilar atelectasis and or infiltrate Approved by: Kal Nguyen M.D. on 06/24/2024 at 18:20
== END ==
LOC: RAD 14:26
PROVIDERS: PCP Family Medicine; Referring Provider Family Medicine; Visit Provider Family Medicine
DX: R05.9 Cough, unspecified (principal)
CPT/HCPCS: 71046

== ENCOUNTER → 2024-07-17 18:32 | Outpatient (CLI) | payer MEDICARE, OTHER, SELFPAY ==
[2024-02-14 12:56] VITALS: BMI 22.4
[2024-07-17 19:27] LABS: Influenza A - CEPHEID Flu A NEGATIVE (NEGATIVE); Influenza B - CEPHEID Flu B NEGATIVE (NEGATIVE); Respiratory Syncytial Virus Negative (Negative)
[2024-07-17 20:04] LABS: COVID-19 CEPHEID 4-PLEX PCR Negative (Negative)
== END ==
PROVIDERS: PCP Family Medicine; Visit Provider Nurse Practitioner Family
DX: R05.1 Acute cough (principal)
CPT/HCPCS: 0241U

== ENCOUNTER → 2024-07-17 18:59 | Outpatient (CLI) | payer MEDICARE, OTHER, SELFPAY ==
[2024-02-14 12:56] VITALS: BMI 22.4
--- NOTE | 2024-07-17 19:07 | DI.RAD.S_ITS ---
PROCEDURE: XR CHEST 2V INDICATIONS: Cough TECHNIQUE: 2 views of the chest were acquired. COMPARISON: [facility], CR, XR CHEST 2V, 06/21/2024, 13:42. FINDINGS: Increased moderate bilateral diffuse peribronchial thickening which is nonspecific but commonly may represent bronchitis, bronchiolitis, viral infection, or other process. There is a background of prominent interstitial markings mildly increased. Atypical pneumonia, interstitial pneumonia or other process could be considered. Calcifications of the aortic arch unchanged. Moderate degenerate changes of the thoracic and upper lumbar spine with S-shaped scoliosis unchanged. No pneumothorax, no pleural effusion, no focal consolidation. Cardiomediastinal silhouette and pulmonary vasculature within normal limits. IMPRESSION: Increased moderate bilateral diffuse peribronchial thickening as discussed above. Prominent interstitial markings mildly increased has discussed above. Follow-up suggested. If symptoms persist or worsen, CT chest could be performed for further evaluation. Dictated by: Jason Marquis M.D. on 07/18/2024 at 8:21 Approved by: Jason Marquis M.D. on 07/18/2024 at 8:27
== END ==
PROVIDERS: PCP Family Medicine; Referring Provider Nurse Practitioner Family; Visit Provider Nurse Practitioner Family
DX: R05.1 Acute cough (principal)
CPT/HCPCS: 0241U; 71046

== ENCOUNTER → 2024-07-22 13:10 | Outpatient (CLI) | payer MEDICARE, OTHER, SELFPAY ==
[2024-02-14 12:56] VITALS: BMI 22.4
--- NOTE | 2024-07-22 13:13 | DI.CT.S_ITS ---
PROCEDURE: CT CHEST W CON INDICATIONS: abnormal chest xray TECHNIQUE: After the administration of intravenous contrast, 5 mm thick sections acquired from the pulmonary apices to the posterior costophrenic angles. 1 mm axial lung, 5 mm thick coronal and sagittal reformats and 7 mm axial MIP were acquired. For radiation dose reduction, the following was used: automated exposure control, adjustment of mA and/or kV according to patient size. COMPARISON: [facility], , XR CHEST 2V, 07/17/2024, 18:22. FINDINGS: Image quality: Diagnostic. Lower Neck: No enlarged lymph nodes. Thyroid: No thyroid nodules which require sonographic follow up, per consensus guidelines. Axillae: No enlarged lymph nodes. Right axillary lymph node dissection Chest Wall: Right mastectomy. Bones: Unremarkable. Lungs and Pleura: No pneumothorax or pleural effusions. Peripheral reticulation with sparing of the subpleural space. No honeycombing. Bronchiectasis and bronchiolectasis is present. No mosaic attenuation to suggest air trapping. Heart: Heart size is normal. No pericardial effusion. Thoracic Vessels: The aorta and pulmonary arteries demonstrate normal size. Mediastinum and Mely: No enlarged lymph nodes. Esophagus: No wall thickening. No hiatal hernia. Upper Abdomen: Visualized upper abdomen solid organs and bowel loops appear normal. 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 Drug reaction/pneumonitis is also a consideration (especially immunotherapy ). Recommend pulmonology referral. Dictated by: Kamran Sweeney M.D. on 07/23/2024 at 11:14 Approved by: Kamran Sweeney M.D. on 07/23/2024 at 11:17
[2024-07-22 13:51] LABS: Estimated Glomerular Filt Rate > 60 mL/min (>60)
== END ==
PROVIDERS: Radiology Diagnostic Radiology; PCP Family Medicine; Referring Provider Family Medicine; Visit Provider Family Medicine
DX: J84.9 Interstitial pulmonary disease, unspecified (principal); R05.3 Chronic cough; R93.89 Abnormal findings on diagnostic imaging of other specified body structures
CPT/HCPCS: 36415; 71260; 82565; Q9967

== ENCOUNTER → 2024-08-23 11:52 | Outpatient (CLI) | payer MEDICARE, OTHER, SELFPAY ==
[2024-02-14 12:56] VITALS: BMI 22.4
--- NOTE | 2024-08-23 11:54 | DI.CT.S_ITS ---
PROCEDURE: CT CHEST WO CON INDICATIONS: f/u on bilateral reticulations no s/p cessation of chemo TECHNIQUE: Noncontrast 2.0-2.5 mm thick sections acquired from the pulmonary apices to the posterior costophrenic angles. 7 mm thick axial MIP and 5 mm coronal and sagittal reformats were then acquired. For radiation dose reduction, the following was used: automated exposure control, adjustment of mA and/or kV according to patient size. COMPARISON: CT chest dated 07/23/2024. FINDINGS: Image quality: Diagnostic. Lower Neck: No enlarged lymph nodes. Thyroid: No thyroid nodules which require sonographic follow up, per consensus guidelines. Axillae: No enlarged lymph nodes. Chest Wall: Unremarkable. Bones: Unremarkable. Lungs and Pleura: Subpleural sparing again noted. Peripheral reticulation has decreased throughout lung parenchyma since prior study. Bronchiectasis and bronchiolectasis somewhat less prominent. Mosaic attenuation again noted. No pneumothorax or pleural effusions. Heart: Heart size is unremarkable. No pericardial effusion. Thoracic Vessels: Mild ectasia of the ascending aorta at 3.3 centimeters, unchanged.. Mediastinum and Mely: Limited evaluation for enlarged lymph nodes due to lack of IV contrast. Slightly prominent mediastinal lymph nodes, still within normal limits by CT criteria. Esophagus: No wall thickening. Small hiatal hernia. Upper Abdomen: Visualized upper abdomen solid organs and bowel loops appear normal. Note is made of right mastectomy. Evaluation of the left breast parenchyma is limited by CT IMPRESSION: Moderately improved appearance of the pulmonary parenchyma with now slightly less prominent peripheral reticulation again likely related to Nonspecific Interstitial Pneumonia (NSIP). Dictated by: Myke Bruno M.D. on 08/27/2024 at 13:56 Approved by: Myke Bruno M.D. on 08/27/2024 at 14:23
== END ==
PROVIDERS: PCP Family Medicine; Referring Provider Student in an Organized Health Care Education/Training Program; Visit Provider Student in an Organized Health Care Education/Training Program
DX: J47.9 Bronchiectasis, uncomplicated (principal); R93.89 Abnormal findings on diagnostic imaging of other specified body structures; I77.810 Thoracic aortic ectasia; K44.9 Diaphragmatic hernia without obstruction or gangrene; Z90.11 Acquired absence of right breast and nipple
CPT/HCPCS: 71250

== ENCOUNTER 2024-10-21 18:13 | Emergency (ER) | payer MEDICARE, OTHER, SELFPAY ==
[2024-02-14 12:56] VITALS: BMI 22.4
[2024-10-21 18:15] VITALS: BP 164/91; PULSE 98; RESP 17; TEMP 36.6; O2SAT 99
== END 2024-10-21 20:26 | disposition left against medical advice (07) ==
PROVIDERS: Emergency Provider Emergency Medicine; PCP Family Medicine
DX: S40.022A Contusion of left upper arm, initial encounter (principal); X58.XXXA Exposure to other specified factors, initial encounter
CPT/HCPCS: 99281

== ENCOUNTER 2024-10-23 10:08 | Emergency (ER) | payer MEDICARE, OTHER, SELFPAY ==
[2024-02-14 12:56] VITALS: BMI 22.4
[2024-10-23 10:22] VITALS: BP 132/86; PULSE 84; RESP 18; TEMP 36.9; O2SAT 99; BMI 20.1
--- NOTE | 2024-10-23 11:22 | ED_ITS ---
HPI - Extremity Problem <Poornima Flores PA-C - Last Filed: 10/23/24 12:42> General Chief complaint: Extremity Problem,Nontraumatic Stated complaint: Per patient, might have blood clot in left arm Time Seen by Provider: 10/23/24 10:51 Source: patient Mode of arrival: Family Vehicle History of Present Illness HPI Narrative: Ms. Patricio is a very pleasant 74-year-old female with a past medical history of right breast cancer s/p right mastectomy with axillary node dissection performed February 2024, hyperlipidemia, interstitial lung disease, osteopenia, Crohn's disease in remission who presents to the emergency department for left arm bruising and swelling x1 week. Patient denies any known trauma to the left arm but states that she has had growing bruising in the lower left arm and throbbing pain in the left bicep. She is concerned about blood clot in the arm because of her history of cancer. She denies any vena puncture in the left arm recently. She does note that she takes out her large trash cans and gets into her truck using left arm and she may have possibly injured it in that way but there was no direct trauma to the arm. She denies lower leg pain or swelling, history of DVT, history of blood thinner use, chest pain, shortness of breath. She feels otherwise well. Related Data Home Medications Medication Instructions Recorded Confirmed acetaminophen 650 mg 1,300 mg PO Q8H PRN Pain (Scale 06/06/18 10/24/24 tablet,extended release (Tylenol Score 4-6) Arthritis Pain) abemaciclib 150 mg tablet 150 mg PO BID 09/05/24 10/24/24 (Verzenio) letrozole 2.5 mg tablet 2.5 mg PO DAILY 09/05/24 10/24/24 Previous Rx's Medication Instructions Recorded ibuprofen 200 mg tablet 400 mg (2 x 200 mg) PO Q6H #60 tabs 02/15/24 Disabled Parking #1 ea 03/18/24 acetaminophen 300 mg-codeine 15 mg 1 tab PO BID PRN pain #30 tabs 03/18/24 tablet breast prosthetic #1 ea 03/21/24 codeine 7.5 mg-guaifenesin 225 7.5 ml PO Q4-6H PRN cough #473 mL 06/21/24 mg/5 mL oral liquid Allergies Allergy/AdvReac Type Severity Reaction Status Date / Time No Known Drug Allergies Allergy Verified 10/24/24 11:09 Review of Systems <Poornima Flores PA-C - Last Filed: 10/23/24 12:42> Review of Systems ROS Unobtainable: All systems reviewed & are unremarkable except as noted in HPI and below Patient History <Poornima Flores PA-C - Last Filed: 10/23/24 12:42> Medical History (Updated 10/24/24 @ 11:36 by Silas Vee MD) Fatigue due to radiation therapy Cough Interstitial lung disease Abnormal CT of the chest History of COVID-19 (07/06/23) Arthritis Osteopenia Anemia (1972) Colon polyps (1972) Ileostomy present (1985) Ulcerative colitis (1972) Crohn's disease Colitis (1972) Myocardial infarction History of vaginal delivery Surgical History History of bunionectomy of left great toe (2015) History of bunionectomy of right great toe (2007) Hx of bilateral cataract extraction (~2016) Anesthesia History of colectomy (03/13/86) Family History Sister Diabetes mellitus Grandmother Congestive heart failure Mother Cancer Social History marital status: number of children: 1 household members: spouse lives independently: Yes caregiver/support person: No housing: house occupational status: employed Smoking Status: Never smoker second hand exposure: No alcohol intake: current substance use type: does not use Smoking Status: Never smoker alcohol intake frequency: a few times a week Exam <Poornima Flores PA-C - Last Filed: 10/23/24 12:42> Narrative Exam Narrative: GENERAL: 74 year old patient appears younger than stated age. Well-developed patient, in no acute distress. HEAD: Atraumatic. Normocephalic. NECK: Trachea midline. Cervical ROM intact. CARDIOVASCULAR: Regular rate. Strong left radial pulse. RESPIRATORY: ?Nonlabored respirations. ?Speaking in clear, full sentences. EXTREMITIES: Left arm with large ecchymosis on medial aspect of the antecubital crease extending down to mid forearm and up to axilla. Appears to be old/healing as ecchymosis has surrounding green/yellow. Strong radial pulse. Biceps tendon is intact and 5/5 bilateral elbow flexion and extension strength. Full range of motion of extremity. Mild tenderness over ecchymosis. No lower extremity tenderness or edema. NEURO: AOx3. ?Clear speech. ?Moves all 4 extremities appropriately. SKIN: Left upper extremity ecchymosis described above. Initial Vital Signs Initial Vital Signs: Vital Signs Temperature 98.5 F 10/23/24 10:22 Pulse Rate 84 10/23/24 10:22 Respiratory Rate 18 10/23/24 10:22 Blood Pressure 132/86 10/23/24 10:22 Pulse Oximetry 99 10/23/24 10:22 Oxygen Delivery Method Room Air 10/23/24 10:22 <Radu Vasquez MD - Last Filed: 11/01/24 12:52> Initial Vital Signs Initial Vital Signs: Vital Signs Temperature 98.5 F 10/23/24 10:22 Pulse Rate 84 10/23/24 10:22 Respiratory Rate 18 10/23/24 10:22 Blood Pressure 132/86 10/23/24 10:22 Pulse Oximetry 99 10/23/24 10:22 Oxygen Delivery Method Room Air 10/23/24 10:22 Course <Poornima Flores PA-C - Last Filed: 10/23/24 12:42> Orders Ordered: ED Orders 10/23/24 11:21 US periph venous up extrem lt Stat Vital Signs Vital signs: Vital Signs - 8 hr 10/23/24 10:22 Temperature 98.5 F Pulse Rate 84 Respiratory Rate 18 Blood Pressure 132/86 Pulse Oximetry 99 Oxygen Delivery Method Room Air <Radu Vasquez MD - Last Filed: 11/01/24 12:52> Orders Ordered: ED Orders 10/23/24 11:21 US periph venous up extrem lt Stat Vital Signs Vital signs: Vital Signs - 8 hr 10/23/24 10:22 Temperature 98.5 F Pulse Rate 84 Respiratory Rate 18 Blood Pressure 132/86 Pulse Oximetry 99 Oxygen Delivery Method Room Air MDM - Extremity (Nontraumatic) <Poornima Flores PA-C - Last Filed: 10/23/24 12:42> Medical Records Attestation: I reviewed the patient's medical records. Imaging Data Left Upper Extremity Peripheral Vascular US: Radiologist's Impression: PROCEDURE: US PERIPH VENOUS UP EXTREM LT INDICATIONS: BRUISING TECHNIQUE: Real-time imaging, as well as color and pulse Doppler interrogation, was performed of the upper extremity deep veins from the inferior neck to the antecubital fossa. COMPARISON: None. FINDINGS: The internal jugular vein, visualized portions of the subclavian vein, axillary, and brachial veins are free of intraluminal thrombus. Where physically possible, the veins are normally compressible. Color and pulse Doppler demonstrate normal intraluminal flow, with expected phasicity and pulsatility. Additional scanning of the cephalic and basilic veins of the superficial system demonstrates normal compressibility, without thrombus. Additional, dedicated ultrasound scanning is performed at the area of bruising. No focal ultrasound abnormalities are seen within this region. IMPRESSION: No findings of upper extremity deep venous thrombosis can be seen. MDM Narrative Medical decision making narrative: 74-year-old female with a past medical history of right breast cancer s/p right mastectomy with axillary node dissection performed February 2024, hyperlipidemia, interstitial lung disease, osteopenia, Crohn's disease in remission who presents to the emergency department for left arm bruising and swelling x1 week. Differential diagnosis includes but is not limited to biceps muscle strain, muscle strain, hematoma, ecchymosis, contusion, DVT, etc. On exam the patient is in no acute distress, nontoxic appearing, vital signs within normal limits. She is large ecchymosis on the left arm and mild swelling of the left biceps. Biceps tendon is intact. Radial pulses strong, left arm strength and range of motion intact. Neurovascularly intact. After shared decision-making with the patient, we will proceed with left upper extremity venous ultrasound to rule out underlying DVT given her history of malignancy ho wever most suspicious for muscle strain causing hematoma. Left upper extremity peripheral vascular ultrasound reveals no findings of DVT. Dedicated ultrasound scanning is performed of the area of bruising which shows no focal ultrasound abnormalities. Suspect hematoma secondary to muscle strain, recommended warm compress, ibuprofen/Tylenol if needed for discomfort. Advised patient to follow up with her PCP and she also has an appointment with her breast surgeon tomorrow we discussed ER return precautions. Patient verbalized understanding of all information, is reassured, stable for discharge home. Discharge Plan Departure Patient Disposition: Home Clinical Impression: Hematoma of left upper extremity Instructions: DI for Hematoma (Bruise) Activity Restrictions/Additional Instructions: Dear Ms. Patricio, Your diagnosis today is hematoma or large bruise of the left arm likely the result of a muscle strain of the biceps. Please use warm compress and ibuprofen/Tylenol if needed for pain. Please follow up with your surgeon tomorrow as we discussed in your primary care doctor as well. Please take Ibuprofen (Motrin/Advil) or Acetaminophen (Tylenol) for pain. These are available over the counter. You may take Ibuprofen 400 mg every 6-8 hours with food for pain. You may also take Acetaminophen 650 mg every 4-6 hours for pain. Do not exceed 3000 mg of Tylenol a day as this can cause liver damage. Do not drink alcohol with either of these medications. Please follow up with your primary care doctor within the next 2-3 days for ER follow-up. (If you do not have a PCP you can call [phone]. ?to schedule an appointment with an [facility] Primary Care Provider) IF YOU DEVELOP ANY NEW OR WORSENING SYMPTOMS, RETURN TO THE ER! Please read the attached instructions, they highlight more specific treatments and interventions for you at home. Thank you for letting me participate in your care, Poornima Flores PA-C Prescriptions: No Action acetaminophen-codeine 300-15 mg tablet 1 tab PO BID PRN (Reason: pain) Qty: 30 0RF (DME) Disabled Parking See Rx Instructions .ROUTE .MEDSUPPLY Qty: 1 0RF Rx Instructions: I find this patient to be medical disabled and qualified for Disabled Parking as indicated, and signed, on the and the Accompanying Disabled Parking Application for Individuals. codeine-guaifenesin 7.5-225 mg/5 mL liquid 7.5 ml PO Q4-6H PRN (Reason: cough) Qty: 473 0RF (DME) breast prosthetic See Rx Instructions .Route .MEDSUPPLY Qty: 1 1RF Rx Instructions: As directed acetaminophen [Tylenol Arthritis Pain] 650 mg tablet extended release 1,300 mg PO Q8H PRN (Reason: Pain (Scale Score 4-6)) ibuprofen 200 mg tablet 400 mg PO Q6H Qty: 60 0RF Verzenio 150 mg tablet 150 mg PO BID letrozole 2.5 mg tablet 2.5 mg PO DAILY Referrals: Zahida Marsh MD [Primary Care Provider] - Stand Alone Forms: Patient Portal/API/Survey ED Sign-out <Radu Vasquez MD - Last Filed: 11/01/24 12:52> Cosign ED Attending Cosignature Attestation: I was immediately available in the department for consultation. ?This documentation has been reviewed and I agree with assessment and plan. Supervised by Radu Vasquez MD
[2024-10-23 12:44] VITALS: BP 132/78; PULSE 80; RESP 20; TEMP 36.4; O2SAT 99
== END 2024-10-23 12:45 | disposition home or self-care (01) ==
PROVIDERS: Emergency Provider Physician Assistant; PCP Family Medicine
DX: S40.022A Contusion of left upper arm, initial encounter (principal); X58.XXXA Exposure to other specified factors, initial encounter
CPT/HCPCS: 93971; 99281; 99283

== ENCOUNTER → 2024-10-24 11:47 | Outpatient (CLI) | payer MEDICARE, OTHER, SELFPAY ==
[2024-02-14 12:56] VITALS: BMI 22.4
[2024-10-24 12:49] LABS: HEMOLYSIS < 15 (0-50); Iron 90 ug/dL (37-170)
[2024-10-24 13:00] LABS: Percent Iron Saturation 29 % (15-50); Total Iron Binding Capacity 311 ug/dL (265-497); Transferrin 299 mg/dL (206-381)
[2024-10-24 13:02] LABS: Prealbumin 24.3 mg/dL (17.6-36.0)
[2024-10-24 13:42] LABS: Vitamin B12 Reflex MMA if <400 537 pg/mL (239-931)
== END ==
PROVIDERS: PCP Family Medicine; Referring Provider Surgery; Visit Provider Surgery
DX: R53.83 Other fatigue (principal); Y84.2 Radiological procedure and radiotherapy as the cause of abnormal reaction of the patient, or of later complication, without mention of misadventure at the time of the procedure; Z93.2 Ileostomy status
CPT/HCPCS: 36415; 82607; 83540; 83550; 84134

== ENCOUNTER → 2024-12-04 07:41 | Outpatient (CLI) | payer MEDICARE, OTHER, SELFPAY ==
[2024-02-14 12:56] VITALS: BMI 22.4
--- NOTE | 2024-12-04 07:43 | DI.MG.S_ITS ---
UNILATERAL LEFT DIGITAL SCREENING MAMMOGRAM 3D/2D WITH CAD - RIGHT BREAST POST MASTECTOMY: 12/04/2024 CLINICAL: Routine screening. Personal history of right breast cancer. Comparison is made to exams dated: 12/01/2023 mammogram, 06/22/2018 mammogram, and 07/24/2015 mammogram - [facility]. The breasts are heterogeneously dense, which may obscure small masses (category c / 51-75% glandular tissue). Current study was also evaluated with a Computer Aided Detection (CAD) system. No significant masses, calcifications, or other findings are seen in the breast. There has been no significant interval change. IMPRESSION: NEGATIVE There is no mammographic evidence of malignancy. A 1 year screening mammogram is recommended. This exam was interpreted at Station ID: [id number]. NOTE: For mammograms, a report in lay terms will be sent to the patient. Approximately 15% of breast malignancies will not be visualized mammographically. In the management of a palpable breast mass, a negative mammogram must not discourage biopsy of a clinically suspicious lesion. Electronically Signed By: Luis irizarry/alexy:12/05/2024 11:46:33 letter sent: Normal Exam ACR BI-RADS Category 1: Negative
== END ==
PROVIDERS: PCP Family Medicine; Referring Provider Student in an Organized Health Care Education/Training Program; Visit Provider Student in an Organized Health Care Education/Training Program
DX: Z12.31 Encounter for screening mammogram for malignant neoplasm of breast (principal); R92.333 Mammographic heterogeneous density, bilateral breasts; C50.411 Malignant neoplasm of upper-outer quadrant of right female breast; Z17.0 Estrogen receptor positive status [ER+]
CPT/HCPCS: 77063; 77067

== ENCOUNTER → 2025-06-17 06:55 | Outpatient (CLI) | payer MEDICARE, OTHER, SELFPAY ==
[2025-01-09 09:16] VITALS: BMI 22.4
--- NOTE | 2025-06-17 06:56 | DI.US.S_ITS ---
US axillary only rt: 06/17/2025. BI-RADS: 2 CLINICAL: 75-year old female for right diagnostic breast ultrasound. No Tyrer- Cuzick risk score calculation due to the patient's personal history of breast cancer. Patient reports a history of right breast carcinoma diagnosed at age 73. Status-post right mastectomy with radiation therapy and chemotherapy. The patient reports a palpable abnormality (1 year) and pain (9 months) in the right breast. PRIOR EXAMS 12/04/2024, 01/22/2024, 01/05/2024, 12/01/2023, 06/22/2018, 07/24/2015. ULTRASOUND TECHNIQUE Real-time cook scale and color doppler imaging of the area of clinical interest was performed with image documentation. Right targeted breast ultrasound of the area of clinical interest and the axilla was performed with image documentation. ULTRASOUND FINDINGS Locations were approximated based on the expected anatomic position of a nipple on the chest. Right: Central, Retroareolar, measuring 2.5 x 1.8 x 0.2 cm: There is a post-operative change with post-surgical fluid collection. This likely represents a small seroma. Right: Outer at 9:00, 10 cm from nipple: Correlating with palpable lump there is a region of scar tissue. Scarring extends from the central breast towards the axilla. Right: Axilla: Correlating with palpable lump there is a region of scar tissue. Scarring extends from the central breast towards the axilla. Right: Upper Outer at 10:00, 7 cm from nipple: There is no sonographic abnormality to account for concern by the patient of pain/tenderness. IMPRESSION: Right * No evidence of malignancy with benign findings. RECOMMENDATIONS Right * Clinical follow-up is recommended, and further management of palpable abnormalities or other focal signs or symptoms should be based on the results of clinical evaluation. If palpable abnormality or other concerning symptom persists or progresses, further clinical evaluation should be considered. Left * Annual screening mammography. COMMENTS: Findings and recommendations were conveyed to the patient during today's evaluation. OVERALL ASSESSMENT CATEGORY BI-RADS-2: Benign. ELECTRONICALLY SIGNED: Dipika Sapp M.D. on 06/17/2025 at 09:18:29 AM PT Interpreting Station ID: [id number]
== END ==
LOC: US 06:56
PROVIDERS: Family Provider Family Medicine; PCP Family Medicine; Referring Provider Student in an Organized Health Care Education/Training Program; Visit Provider Student in an Organized Health Care Education/Training Program
DX: C50.411 Malignant neoplasm of upper-outer quadrant of right female breast (principal); Z17.0 Estrogen receptor positive status [ER+]
CPT/HCPCS: 76882

== ENCOUNTER 2025-07-30 08:43 | Day surgery (SDC) | payer MEDICARE, OTHER, SELFPAY ==
[2025-01-09 09:16] VITALS: BMI 22.4
[2025-07-25 07:44] VITALS: BMI 19.3
[2025-07-30] VITALS (7 sets, daily range): BP systolic 137–178; BP diastolic 72–94; PULSE 16–100; RESP 12–20; TEMP 35.6–36.7; O2SAT 98–100; BMI 19.3; BMI 21.1
--- NOTE | 2025-07-30 | PATH_ITS ---
[facility] Accession Number: [id number] . 01 Material submitted: . PART A: breast - RIGHT MASTECTOMY SCAR PART B: breast - LEFT BREAST: SHORT SUPERIOR, LONG LATERAL . 01 Diagnosis: A. RIGHT MASTECTOMY SCAR: Skin with scar and otherwise no significant histomorphologic abnormality. . B. LEFT BREAST SIMPLE MASTECTOMY (WEIGHT 450 GRAMS): Skin and nipple with no significant histomorphologic abnormality. Benign breast parenchyma with focal features of fibrocystic change; negative for epithelial atypia or malignancy. Microcalcifications are present and are associated with benign ductal epithelium. [facility] 08/08/2025 1201 Local . 01 Electronically signed: . Jasmyn Espinoza MD, Pathologist NPI- [id number] . 01 Gross description: . A. Received in formalin with two identifiers and an illegible site is a 50 gram, irregularly shaped fragment of skin with attached fibroadipose tissue measuring 9.5 x 6.7 x 2.7 cm. The skin is kumar and wrinkled with an eccentrically located linear scar, 5.4 cm in length by 0.2 cm in diameter. The scar appears well-healed and no additional lesions are identified. The margin is inked blue and the specimen is serially sectioned into 15 slices revealing yellow to white fibroadipose tissue with less than 10% fibrous tissue. A hemorrhagic area measuring 1.1 x 1.0 x 0.9 cm identified within slices 2-4 and no additional lesions are identified. Dirt Supervisor sections are submitted as follows: A1: Slice 2, hemorrhagic area. A2: Slice 3, hemorrhagic area. A3: Slice 7 with scar. A4: Slice 11 with scar. B. Received In formalin with two identifiers and left breast short superior long lateral. Specimen: An oriented simple mastectomy. Weight: 450 grams. Measurement: 12.5 cm superior to inferior, 19.2 cm medial to lateral, 4.5 cm anterior to posterior. Skin ellipse: Present, sutured with a short suture along one edge designating superior and a long suture near one tip designating lateral per the requisition. The skin ellipse measure 19.1 x 10.5 cm with kumar, wrinkled, unremarkable skin and no scars or lesions. Nipple/areola: A 1.0 x 1.0 cm diameter everted nipple is within a 2.3 x 2.0 cm diameter unremarkable areola with no scars identified. Axillary tail: Not definitively present. Margins: Inked anterior superior blue, anterior inferior green, posterior black. Slices: Sliced from medial to lateral into 22 slices. Lesions: No lesions identified. Other: The cut surface is yellow to white fibroadipose tissue with approximately 20% dense fibrous tissue. Fixation: The specimen was removed on 07/30/2025, time not provided. Cold ischemic time cannot be calculated. Total fixation time is approximately 65 hours following additional fixation. Dirt Supervisor sections are submitted as follows: B1: Entire nipple. B2: Upper inner quadrant. B3: Lower inner quadrant. B4: Lower outer quadrant. B5: Upper outer quadrant. ([id number]) /MRV 07/31/20258 Local . 01 Microscopic: . Immunohistochemical stains are performed to evaluate for block reactivity. The control stained with appropriate reactivity. . RESULTS: Block A4 and B1 GRECIA: Negative in region of interest. NORBERTO-3: Negative in region of interest. . There is no evidence of tumor involvement of dermal lymphatics by immunohistochemistry studies. . * This test was developed and the performance characteristics were validated by [employer]. It has not been cleared or approved by the U.S. Food and Drug Administration. . 01 Pathologist provided ICD-10: C50.911 . 01 CPT . 472425, 776864, X91924 Performed at: [address] [address], [place], [place] [id number] MD Raman Daniel MD Phone: [phone]
[2025-07-30] MEDS: LACTATED RINGERS 1,000 ML 42 ML IV ×2 (09:29→13:04)
--- NOTE | 2025-07-30 10:27 | PM.PREOP ---
Pre-operative Note COVID-19 COVID-19 status: Not tested Interval Note History & Physical reviewed/Exam performed by Physician: Yes Changes to H&P: No ASA Class (for procedural sedation): II
--- NOTE | 2025-07-30 11:26 | SUR.OPER ---
Supine on padded OR bed, head on pillow, arms secured on padded arm boards at <90 degrees abduction, legs uncrossed, safety belt at thigh, tape over blanket over lower legs.
[2025-07-30] MEDS: ACETAMINOPHEN IV 1,000 MG/100 ML VIAL 400 MG IV (12:49)
--- NOTE | 2025-07-30 13:37 | P.OP_ITS ---
Operative Date/Time/Diagnoses Date of procedure: 07/30/25 Time of procedure: 13:37 Pre-op diagnosis: History of breast cancer Post-op diagnosis: same Procedure & Clinicians Procedure: 1. Revision of right mastectomy scar 2. Prophylactic left simple mastectomy Same procedure(s) as scheduled: Yes Surgeon: Song Coleman Assisted?: No Anesthesia Type: General Operative Notes Findings: Applied: none Estimated Blood Loss (mL): 25 Procedure in detail: The patient was brought to the operating room, placed on the table in the supine position and general anesthesia was induced. Both arms were abducted on arm boards. Bilateral breasts and axillae were prepped and draped in the usual fashion. A time-out was performed. We started on the right side. An ellipse was created using a 10 blade scalpel to excise the excess skin at the lateral aspect of the right mastectomy scar. There were some fibrous bands of scar tissue connecting in the overlying skin to the underlying pectoral muscle fascia superior to the incision. These bands of scar tissue were divided with cut function using the Bovie. Additional local was injected into the muscle fascia. The incision was closed in layers using multiple interrupted 3-0 Vicryl dermal sutures followed by a running 4-0 Monocryl subcuticular stitch. Next we made a 20 cm elliptical skin incision encompassing the left areola and curving towards the axilla laterally. We used cautery to enter the plane between the breast tissue in the subcutaneous adipose tissue. We developed the superior flap first. We carried the dissection to the superior aspect of the breast tissue and when we saw pectoralis muscle we started to turn and lift the breast off the pectoral fascia. Her breast tissue did not extend to the clavicle due to her age and laxity. We then created an inferior flap and dissected the breast tissue down to the inframammary fold. We carried the dissection laterally to the edge of the latissimus muscle. We then removed the breast tissue from the field. We placed a short silk stitch along the superior aspect of the specimen and a long stitch along the lateral aspect. Finally, we irrigated the wound cavity with 1 L of saline. We checked for hemostasis and addressed a few small bleeders with cautery. We injected additional local into the muscle and fascia. We then placed one 15 Cambodian round Vickey drain into the field and brought it out through a lateral stab incision. The drain was secured to the skin with a 2-0 nylon stitch. We then closed the incision in layers using interrupted 3-0 Vicryl dermal sutures followed by running 4-0 Monocryl subcuticular stitch. Dressings and a breast binder were applied and the patient was brought to recovery room. EBL: 20 mL Specimen: Left breast and right lateral mastectomy scar Complications: none Post-operative Condition: stable Disposition: PACU
[2025-07-30] MEDS: IBUPROFEN 600 MG TABLET PO (21:07)
[2025-07-31 08:07] VITALS: BP 144/73; PULSE 100; RESP 18; TEMP 36.1; O2SAT 70
--- NOTE | 2025-07-31 09:41 | PC.NURSE ---
0930 - discharge order reviewed. Instructions of JOSE drain management and discharge given and understood. PIV removed and JOSE drain emptied. Pt discharged with family member via private vehicle, escorted by [employer]TING [employer]ERKS with a wheelchair.
== END 2025-07-31 09:30 | disposition home or self-care (01) ==
LOC: OR 13:18 → AC 13:19
PROVIDERS: Family Provider Family Medicine; PCP Family Medicine; Referring Provider Surgery; Visit Provider Surgery
PROC: (CPT 19301; principal; 2025-07-30 10:30)
DX: Z40.01 Encounter for prophylactic removal of breast (principal); Z85.3 Personal history of malignant neoplasm of breast; L90.5 Scar conditions and fibrosis of skin; R20.8 Other disturbances of skin sensation
CPT/HCPCS: 19301; 11406; 12036; J0131; J1171; J2250; J2405; J2704; J3010; J3490

== ENCOUNTER → 2025-10-03 19:42 | Outpatient (CLI) | payer MEDICARE, OTHER, SELFPAY ==
[2025-08-01 11:24] VITALS: BMI 21.1
--- NOTE | 2025-10-03 19:44 | DI.MRI.S_ITS ---
PROCEDURE: MR SHOULDER RT WO CON INDICATIONS: r/o RTC tear, shoulder pain TECHNIQUE: Noncontrast oblique coronal T2 fast spin echo with fat saturation, oblique sagittal T1 spin echo and T2 fast spin echo with fat saturation, axial T1 spin echo and T2 fast spin echo with fat saturation through the shoulder. COMPARISON: [facility], CR, XR SHOULDER RT 2+ VIEWS, 09/30/2025, 10:43. FINDINGS: Image quality: Diagnostic. Rotator cuff: Chronic, in full-thickness, functionally full width tear of supraspinatus and infraspinatus. There are a few severely tendinotic fibers of the far anterior supraspinatus and far posterior infraspinatus which reach the anterior and posterior greater tuberosity, respectively. Moderate tendinosis of subscapularis with articular sided partial thickness, approximately 50 percent, partial width, 10 mm, tearing of the superior tendon fibers. Severe atrophy and fatty infiltration of supraspinatus and infraspinatus muscle bellies. The far anterior supraspinatus tendon fibers are scarred to the superior subscapularis tendon fibers. Moderate atrophy and fatty infiltration of the superior subscapularis. Teres minor is intact. Biceps: Chronic tear of the long head of the biceps which is scarred to the bicipital groove. There is short-segment intrasubstance longitudinal tearing of the long head of the biceps in the distal bicipital groove. Degeneration of the biceps anchor. Osseous structures and articular cartilage: No fracture. Large intraosseous ganglion cyst in the superior lesser tuberosity. The humeral head is superiorly decentered on the glenoid. Diffuse partial-thickness articular cartilage loss in the glenohumeral joint with deep articular cartilage thinning of the superior humeral head. Supraspinatus outlet: Osseous remodeling of the distal acromial undersurface secondary to pseudoarticulation with the superior humeral head. Intra-articular: Circumferential labral degeneration and free edge blunting. Large joint effusion with synovitis and debris in the axillary recess, subcoracoid recess, and in the subacromial subdeltoid bursa. Scarring of the inferior glenohumeral ligaments without acute tear. No imaging findings of adhesive capsulitis. Extra-articular: Mild atrophy of the lateral and posterior heads of the deltoid. Nonspecific subcutaneous fat edema about the shoulder. Surgical clips and susceptibility artifact in the axilla. IMPRESSION: 1. Rotator cuff arthropathy with moderate to severe chondromalacia secondary to the massive superior rotator cuff tear. 2. Severe atrophy and fatty infiltration of supraspinatus, superior subscapularis, and infraspinatus. 3. Circumferential labral degeneration. 4. Chronic tear of the long head of the biceps which is scar to superior bicipital groove, longitudinal short-segment interstitial tear of the distal long head of biceps in the bicipital groove. Dictated by: Marlon Ochoa M.D. on 10/05/2025 at 12:06 Approved by: Marlon Ochoa M.D. on 10/05/2025 at 12:17
== END ==
LOC: MRI 19:43
PROVIDERS: Family Provider Family Medicine; PCP Family Medicine; Referring Provider Orthopaedic Surgery; Visit Provider Orthopaedic Surgery
DX: M75.121 Complete rotator cuff tear or rupture of right shoulder, not specified as traumatic (principal); S46.111A Strain of muscle, fascia and tendon of long head of biceps, right arm, initial encounter; M67.411 Ganglion, right shoulder; M25.411 Effusion, right shoulder; M94.211 Chondromalacia, right shoulder; M25.511 Pain in right shoulder
CPT/HCPCS: 73221